=== PATIENT | female | born 1970 | race Caucasian/White ===

== ENCOUNTER → 2018-08-10 | Day surgery (SDC) | payer OTHER ==
--- NOTE | 2018-08-09 15:52 | Diagnostic Imaging Report ---
EXAMINATION: CHEST 2 VIEWS INDICATION: Pre-admit. COMPARISON: None FINDINGS: TUBES and LINES: None. LUNGS: Lungs are well inflated. Mild patchy left basilar opacity, likely atelectasis. There is no evidence of pneumonia or pulmonary edema. PLEURA: No pleural effusion or pneumothorax. HEART AND MEDIASTINUM: The cardiomediastinal silhouette is unremarkable. BONES AND SOFT TISSUES: No acute osseous abnormality. UPPER ABDOMEN: No free air under the diaphragm. IMPRESSION: No acute radiographic abnormality. Signed by: Dr. Radha Lacy MD on 08/09/2018 3:49 PM
[~2018-08-10] MED LIST: BACITRACIN 50,000 UNIT VIAL ONE; BUPIVACAINE HCL 0.5% INJ 30 ML VIAL INJ ONE; CALCIUM 500+D1 EACH PO; CEFAZOLIN SOD 1 GM/NS 50ML 50 ML IV ONE; DEXAMETHASONE SOD PHOS INJ 4 MG/ML VIAL ONE; FENTANYL CITRATE/PF 100MCG/2 ML INJ ONE; FISH OIL 1,0001 EAC2 PO; KETOROLAC TROMETHAMINE 30 MG/ML VIAL ONE; LIDOCAINE HCL 2% LOCAL INJ 5 ML SDV VIAL INJ ONE; MIDAZOLAM HCL 2 MG/2 ML VIAL ONE; MULTI-VITAMIN1 EACH PO; ONDANSETRON HCL INJ 2MG/ML 2ML 2 MG/ML VIAL ONE; PROPOFOL IV EMULSION 10 MG/ML 20 ML VIAL ONE; SEVOFLURANE INHAL SOLN 250 ML PEN BTL ONE; SYNTHROID112 MCG PO
--- OUTSIDE RECORDS SUMMARY | 2018-08-10 05:14 | XMS REPORT ---
Author Author [facility] Address Unknown Phone Unavailable Care Team Providers Care Product Development Technician Name Role Phone Gee EATON Unavailable Unavailable Problems This patient has no known problems. Allergies, Adverse Reactions, Alerts This patient has no known allergies or adverse reactions. Medications This patient has no known medications. Results Test Description Test Time Test Comments Text Results Atomic Results Result Comments CHEST 2 VIEWS 2018-08-09 15:47:00 [facility] [address] [place] [address] Patient Name: TERESA PARRA MR #: [id number] : 1970 Age/Sex: 48/F Req #: [id number] Adm Physician: Ordered by: Gee EATON DPM Report #: [id number] Location: OR Room/Bed: Procedure: [id number] DX/CHEST 2 VIEWS Exam Date: 08/09/18 Exam Time: 1530 REPORT STATUS: Signed EXAMINATION: CHEST 2 VIEWS INDICATION: Pre-admit. COMPARISON: None FINDINGS: TUBES and LINES: None. LUNGS: Lungs are well inflated. Mild patchy left basilar opacity, likely atelectasis. There is no evidence of pneumonia or pulmonary edema. PLEURA: No pleural effusion or pneumothorax. HEART AND MEDIASTINUM: The cardiomediastinal silhouette is unremarkable. BONES AND SOFT TISSUES: No acute osseous abnormality. UPPER ABDOMEN: No free air under the diaphragm. IMPRESSION: No acute radiographic abnormality. Signed by: Dr. Anitha Barney MD on 08/09/2018 3:49 PM Dictated By: ANITHA BARNEY MD [id number] Transcribed By: MARINA on 08/09/18 [id number] COPY TO: Gee EATON DPM
[2018-08-10 08:50] VITALS: BP 123/78
--- NOTE | 2018-08-10 14:15 | Operative Report ---
DATE OF PROCEDURE: 08/10/2018 SURGEON: Sophia Montanez DPM PREOPERATIVE DIAGNOSES: Left tailor's bunion, left plantar fibroma x2. POSTOPERATIVE DIAGNOSES: Left tailor's bunion, left plantar fibroma x2. PLANNED PROCEDURE: 1. Left excision of plantar fibroma. 2. Left tailor's bunionectomy with 5th metatarsal osteotomy and internal fixation. HOUSEKEEPER HEAD: Sophia Montanez DPM. ANESTHESIA: General with a postoperative block consisting of 20 mL of 0.5% Marcaine plain mixed with 1 mL of dexamethasone phosphate. HEMOSTASIS: Pneumatic thigh tourniquet set at 350 mmHg for a total time of approximately 45 minutes. MATERIALS: Two 2.0 mm x 10 and 12 mm cortical bone screws, 3-0 Vicryl, 4-0 Prolene, 3-0 Prolene. ESTIMATED BLOOD LOSS: Less than 10 mL. PATHOLOGY: Soft tissue mass, excision of the left foot plantar arch. PROCEDURE NOTE: The patient was seen in the preoperative waiting room, where the correct procedure and site was identified. The patient was brought to the operating room, placed on the operating table in supine position, general anesthesia was initiated. At this time, a well-padded pneumatic tourniquet was placed about the patient's left thigh. The left foot, ankle, and leg were then scrubbed, prepped, and draped in the usual aseptic manner. The left foot, ankle, and leg were exsanguinated with an Esmarch bandage. The pneumatic thigh tourniquet was inflated to 350 mmHg for a total time of approximately 45 minutes. Attention was directed to the dorsal lateral aspect of the patient's left 5th metatarsal, where a 4 cm curvilinear incision made directly over the 5th metatarsophalangeal joint lateral to the extensor digitorum longus tendon. Incision was carried through subcutaneous tissue them from deep or underlying structures. All vital neurovascular structures were identified and retracted medial and lateral and all bleeders were cauterized or ligated as deemed necessary. Utilizing a #15 blade, an inverted-L capsulotomy was performed at the level of the left 5th metatarsophalangeal joint. To allow for good visualization of the 5th metatarsal head utilizing sagittal saw, the medial and dorsal eminences were resected and passed off to the back table. Next, an oblique wedge osteotomy was made with the apex lateral and the wedge distal leaving the lateral cortical wedge intact. The 5th metatarsal osteotomy was reduced with forceps and fixated utilizing two 2.0 mm cortical bone screws measuring 10 mm and 12 mm. Next, utilizing intraoperative fluoroscopy, fixation was confirmed to be intact with good anatomic reduction. The wound was then copiously irrigated with sterile saline. The capsule and deep tissue were reapproximated with 3-0 Vicryl, subcutaneous tissue with 3-0 Vicryl, and the skin was closed using running interlocking stitch with 4-0 Prolene. Attention was then directed to the plantar aspect of the patient's mid arch, where two firm nodules were noted, one approximately 2 cm x 2 cm x 0.5 cm and one approximately 0.5 cm x 0.5 cm x 0.5 cm. Utilizing approximately 7 cm lazy-S incision over the medial aspect of the medial band of the plantar fascia, the dissection was carried down to the level of the two large what appeared to be plantar fibromas. These were excised and the superficial layer of the medial band of the plantar fascia and passed off to the back table. Approximately 5 mm of margins were taken as well with both plantar fibromas and sent for pathology for gross specimen. Next, the wound was copiously irrigated with sterile saline and the skin was reapproximated utilizing simple interrupted sutures with 3-0 Prolene. The incision site was then dressed with Adaptic, 4x4s, Kerlix, Davin wrap, and a postop shoe. The patient tolerated procedure and anesthesia well. The patient was transferred to the postop recovery room with vital signs stable and vascular status intact. The patient was monitored there for a short period time before being sent home with the following written and oral instructions, 1. Keep the dressing clean, dry, and intact. 2. The patient is to remain nonweightbearing in a postop shoe to avoid any ambulation until she is seen in the office. 3. The patient was given office number to contact us if any problems should arise. GIOVANNI Temple/DAMON /[phone]
== END | disposition home or self-care (01) ==
LOC: OR 05:00
PROVIDERS: ATTEND Podiatrist Foot & Ankle Surgery
DX: D21.22 Benign neoplasm of connective and other soft tissue of left lower limb, including hip (principal); M21.622 Bunionette of left foot; M77.52 Other enthesopathy of left foot and ankle; E03.9 Hypothyroidism, unspecified; F17.213 Nicotine dependence, cigarettes, with withdrawal; Z01.810 Encounter for preprocedural cardiovascular examination; Z01.818 Encounter for other preprocedural examination
CPT/HCPCS: 71046; 88304; 88305; 93005; J0690; J1100; J1885; J2001; J2250; J2405